=== PATIENT | female | born 1985 | race Caucasian/White ===

== ENCOUNTER 2016-02-22 16:08 | Outpatient (CLI) | payer OTHER | END 2016-02-22 16:10 | LOC: LAB 16:08 | PROVIDERS: ATTEND Family Medicine | DX: R53.83 Other fatigue (principal) | CPT/HCPCS: 36415; 84443 ==

== ENCOUNTER 2016-04-17 15:49 | Outpatient (CLI) | payer OTHER ==
--- NOTE | 2016-04-17 19:03 | Diagnostic Imaging Report ---
RENE DOLAN [facility] [id number] [facility] [address] [address] Report Submission Date: Apr 17, 2016 4:48:18 PM BUSINESS INFORMATION CONSULTANT Patient Study Name: PEGGY ANTON Date: Apr 17, 2016 3:55:50 PM BUSINESS INFORMATION CONSULTANT Modality Type: CR Gender: F Description: LOWER EXTREMITY : 81 Institution: [facility] Physician: RENE DOLAN 3 views left foot History: LEFT FOOT, PAIN IN LATERAL FOOT AFTER STUMBLE 10 DAYS AGO (Hx) / PAIN OF LEFT MIDFOOT Findings: No comparison studies No evidence of acute fracture or dislocation of the left foot Mild soft tissue swelling dorsum of the foot Impression: No evidence of acute fracture or dislocation left foot Electronically signed on Apr 17, 2016 4:48:18 PM BUSINESS INFORMATION CONSULTANT by: Merlene RASMUSSEN
== END 2016-04-17 15:55 | disposition home or self-care (01) ==
LOC: RAD 15:49
PROVIDERS: ATTEND Family Medicine
DX: M79.672 Pain in left foot (principal)
CPT/HCPCS: 73630

== ENCOUNTER 2016-12-05 14:23 | Outpatient (CLI) | payer OTHER ==
--- NOTE | 2016-12-05 17:43 | Diagnostic Imaging Report ---
[facility] [id number] [facility].[address] [address] Report Submission Date: Dec 05, 2016 4:45:17 PM CDT Patient Study Name: PEGGY ANTON Date: Dec 05, 2016 3:13:00 PM CDT Modality Type: US Gender: F Description: TRANSVAGINAL PELVIS : 81 Institution: [facility] Physician: YESENIA CHARLES Examination: Ultrasound pelvis History: Irregular bleeding Comparison exams: None available Findings: Sonographic evaluation of the pelvis demonstrates uterus measuring 7.2 x 4.1 x 4.8 cm. Myometrium without gross regularity. Endometrial complex measures 8.3 mm. Right ovary measures 4.0 x 2.5 x 3.7 cm. Left ovary measures 3.7 x 2.5 x 2.9 cm. Normal flow on Doppler analysis. Follicle centrally. Impression: No evidence for pelvic mass or lesion. No myometrial or endometrial abnormality. No ovarian abnormality or torsion. Electronically signed on Dec 05, 2016 4:45:17 PM CDT by: Blayne RASMUSSEN
== END 2016-12-05 14:30 ==
LOC: RAD 14:23
PROVIDERS: ATTEND Advanced Practice Midwife
DX: R10.2 Pelvic and perineal pain (principal)
CPT/HCPCS: 76830